=== PATIENT | female | born 1950 | race Caucasian/White ===

== ENCOUNTER 2021-08-31 09:57 | Outpatient (REF) | payer MEDICARE, SELFPAY ==
[2021-08-31 14:34] LABS: BUN 17 mg/dL (7-18); CREATININE 0.8 mg/dL (0.55-1.02); Calcium 9.5 mg/dL (8.5-10.1); Calculated LDL 180 mg/dL (<100); Chloride 104 mmol/L (98-107); Cholesterol 295 mg/dL (<200); Glucose 84 mg/dL (74-106); HDL Cholesterol 100 mg/dL (40-60); Potassium 4.6 mmol/L (3.5-5.1); Sodium 142 mmol/L (136-145); Triglyceride 78 mg/dL (<150)
== END 2021-08-31 09:58 | disposition home or self-care (01) ==
LOC: NCHCN 09:57
PROVIDERS: PCP Nurse Practitioner Family; Visit Provider Nurse Practitioner Family
DX: Z83.430 Family history of elevated lipoprotein(a) (principal); Z82.3 Family history of stroke; Z13.220 Encounter for screening for lipoid disorders
CPT/HCPCS: 80048; 80061

== ENCOUNTER 2022-11-15 08:50 | Outpatient (REF) | payer MEDICARE, SELFPAY ==
[2022-11-15 14:58] LABS: Anion Gap 5.9 mmol/L (3-11); BUN 22 mg/dL (7-18); CO2 32.1 mmol/L (21.0-32.0); CREATININE 0.8 mg/dL (0.55-1.02); Calcium 9.7 mg/dL (8.5-10.1); Calculated LDL 170 mg/dL (<100); Chloride 104 mmol/L (98-107); Cholesterol 291 mg/dL (<200); Estimated GFR 79.22 (mL/min/1.73m2); Glucose 99 mg/dL (74-106); HDL Cholesterol 105 mg/dL (40-60); Potassium 4.3 mmol/L (3.5-5.1); Sodium 142 mmol/L (136-145); Triglyceride 83 mg/dL (<150)
== END 2022-11-15 08:51 | disposition home or self-care (01) ==
LOC: NCHCN 08:50
PROVIDERS: PCP Nurse Practitioner Family; Visit Provider Nurse Practitioner Family
DX: E78.89 Other lipoprotein metabolism disorders (principal)
CPT/HCPCS: 80048; 80061